=== PATIENT | male | born 1930 | race Caucasian/White ===

== ENCOUNTER 2017-03-08 10:15 | Day surgery (SDC) | payer MEDICARE, BC ==
[~2017-03-08] VITALS: Ht 172.7 cm; Wt 91.3 kg
[2017-03-08] VITALS (11 sets, daily range): BP systolic 118–180; BP diastolic 65–98; PULSE 63–92; TEMP 97.4–97.9
[~2017-03-08 10:15] MED LIST: AMLODIPINE5 MG PO; ASPIR-LOW81 MG PO; ASPIRIN E.C. 8181 MG PO; AZOPT; AZOPT 10 ML10 ML OD; AZOPT 10 ML10 ML OU; BETIMOL 0.5% OPH5 ML OP; BETIMOL 0.5% OPH5 ML OU; CARDURA 1MG1 MG PO; COUMADIN4 MG PO; COUMADIN5 MG PO; COZAAR50 MG PO; DOXAZOCIN PO; FLOMAX 0.40.4 MG/CAP PO; FORTAMET500 MG PO; GLUCOPHAGE500 MG/TAB PO; GLYBURIDE MICRO1 TA1 PO; GLYBURIDE/METFORMIN PO; HCTZ12.5TAB PO; IRON TABLETS325 MG PO; LEVEMIR100 U/ML SC; LIPITOR20 MG PO; LISINOPRIL20 MG PO; LISINOPRIL40 MG PO; METFORMIN500 MG PO; MULTIPLE VITAMI1 TAB PO; NORVASC 10MG10 MG PO; NORVASC5 MG PO; PRILOSEC; PRILOSEC20 MG PO; SAW PALMETTO500 MG PO; TOPROL XL100 MG PO; TRAVATAN; TRAVATAN 2.5 M2.5 M1 OS; TRAVATAN Z 2.52.5 ML OU; WARFARIN SODIUM6 MG PO; ZOCOR 80MG80 MG PO; [UNRECOGNIZED DRUG - OTHER]
[2017-03-08 10:53] LABS: HEMOGLOBIN 12.1 g/dl (13.5-18.0); MEAN CELL VOLUME 87 fl (80.0-100.0); MEAN CORPUSCULAR HEMOGLOBIN 29 pg (27.0-31.0); MEAN CORPUSCULAR HGB CONC 34 g/dl (33.0-37.0); MEAN PLATELET VOLUME 10.3 fl (7.4-10.4); PLATELET COUNT 232 K/mm3 (130-400); RED BLOOD COUNT 4.12 M/mm3 (4.20-5.60); REDCELL DISTRIBUTION WIDTH-CV 13.5 % (11.5-14.5); WHITE BLOOD COUNT 6.2 K/mm3 (4.8-10.8)
[2017-03-08 11:02] LABS: INR 1.1 (0.8-3.0); PROTHROMBIN TIME 11.9 SECONDS (9.7-12.8)
[2017-03-08 11:28] LABS: CREATININE, serum 1.02 mg/dL (0.66-1.25); POTASSIUM 4.6 mmol/L (3.4-5.0)
[2017-03-09 04:46] VITALS: BP 177/89; PULSE 85; TEMP 97.5
[2017-03-09 09:14] VITALS: BP 160/65; PULSE 80; TEMP 97.9
[2017-03-09] MEDS ORDERED: CLEOCIN HCL300 MG PO (11:31)
== END 2017-03-09 12:40 | disposition home or self-care (01) ==
LOC: JCC 10:15 → COL.CAR 10:15 → MEDICAL 17:00 → COL.CAR 17:00 → MEDICAL 03-09 12:40
PROVIDERS: Internal Medicine Interventional Cardiology
DX: I49.5 Sick sinus syndrome (principal); I25.10 Atherosclerotic heart disease of native coronary artery without angina pectoris; Z95.1 Presence of aortocoronary bypass graft; Z87.891 Personal history of nicotine dependence; I73.9 Peripheral vascular disease, unspecified; I48.91 Unspecified atrial fibrillation; Z79.01 Long term (current) use of anticoagulants; E78.5 Hyperlipidemia, unspecified; I71.4 Abdominal aortic aneurysm, without rupture; I87.2 Venous insufficiency (chronic) (peripheral)
CPT/HCPCS: C1785; C1894; C1898; J0690; J2250; J3010; J7030

== ENCOUNTER 2018-06-10 11:48 | Day surgery (SDC) | payer MEDICARE, BC ==
[~2018-06-10] VITALS: Ht 170.2 cm; Wt 91.9 kg
[2018-06-10] VITALS (10 sets, daily range): BP systolic 137–170; BP diastolic 61–88; PULSE 64–105; TEMP 97.5–98.2
[~2018-06-10 11:48] MED LIST changes: +CLEOCIN HCL300 MG PO; +COZAAR 50MG50 MG/TAB PO; -COZAAR50 MG PO; +PRILOSEC 20MG20 MG PO; -PRILOSEC20 MG PO
[2018-06-10] MEDS ORDERED: GLUCOVANCE 2.51 TAB PO (12:42)
[2018-06-10] MEDS ORDERED: LIPITOR 80MG80 MG PO (12:44)
[2018-06-10] MEDS ORDERED: TOPROL XL 25MG25 MG PO (12:47)
[2018-06-10] MEDS ORDERED: TRESIBA FL100 UNIT/1 SQ (12:48)
[2018-06-10] MEDS ORDERED: RESTASIS MULTI5.5 ML OP (12:49)
[2018-06-10] MEDS ORDERED: TYLENOL 325MG325 MG PO (12:50)
[2018-06-11 00:55] VITALS: BP 139/70; PULSE 101; TEMP 97.8
[2018-06-11 04:00] VITALS: BP 167/71; PULSE 95; TEMP 97.4
[2018-06-11 09:00] VITALS: BP 152/77; PULSE 82; TEMP 97.7
[2018-06-11 13:00] VITALS: BP 143/71; PULSE 81; TEMP 97
== END 2018-06-11 15:04 | disposition home or self-care (01) ==
LOC: SDCO 11:48 → SURG 15:30 → SDCO 06-11 15:04
DX: C67.2 Malignant neoplasm of lateral wall of bladder (principal); N40.1 Benign prostatic hyperplasia with lower urinary tract symptoms; R35.1 Nocturia; R39.11 Hesitancy of micturition; R39.12 Poor urinary stream; I48.91 Unspecified atrial fibrillation; I25.10 Atherosclerotic heart disease of native coronary artery without angina pectoris; K21.9 Gastro-esophageal reflux disease without esophagitis; E78.5 Hyperlipidemia, unspecified; I10 Essential (primary) hypertension; E66.9 Obesity, unspecified; E11.40 Type 2 diabetes mellitus with diabetic neuropathy, unspecified; E11.39 Type 2 diabetes mellitus with other diabetic ophthalmic complication; H42 Glaucoma in diseases classified elsewhere; G47.33 Obstructive sleep apnea (adult) (pediatric); I27.20 Pulmonary hypertension, unspecified; Z90.49 Acquired absence of other specified parts of digestive tract; Z95.1 Presence of aortocoronary bypass graft; Z95.0 Presence of cardiac pacemaker; Z79.82 Long term (current) use of aspirin; Z79.84 Long term (current) use of oral hypoglycemic drugs; Z88.0 Allergy status to penicillin; Z87.891 Personal history of nicotine dependence; Z85.46 Personal history of malignant neoplasm of prostate; Z92.3 Personal history of irradiation
CPT/HCPCS: OP; J0690; J1100; J2704; J3010; J7030

== ENCOUNTER 2019-10-13 13:35 | Day surgery (SDC) | payer MEDICARE, BC ==
[2019-10-13] VITALS (9 sets, daily range): BP systolic 112–155; BP diastolic 40–76; PULSE 61–82; TEMP 97.4–97.9
[~2019-10-13] VITALS: Ht 172.7 cm; Wt 91.2 kg
[~2019-10-13 13:35] MED LIST changes: -COZAAR 50MG50 MG/TAB PO; +COZAAR100 MG PO; +GLUCOVANCE 2.51 TAB PO; +LIPITOR 80MG80 MG PO; +RESTASIS MULTI5.5 ML OU; +TOPROL XL 50MG50 MG PO; +TRESIBA FL100 UNIT/1 SQ; +TYLENOL 325MG325 MG PO
[2019-10-13] MEDS ORDERED: HCTZ 25MG TAB25 MG PO (15:45)
[2019-10-13] MEDS ORDERED: XALATAN EYE DROPS OU (15:49)
[2019-10-13] MEDS ORDERED: TRUSOPT OCUMETE10 ML OD (15:51)
--- NOTE | 2019-10-13 16:55 | NUR ---
Left wrist IV site has infiltration noted. Small half-dollar sized edema noted at insertion site. Site discontinued with pressure dressing applied. New 20 guage Rt wrist started by Katelyn MCKEON. IV fluids infusing without difficulties. Pt taken to surgery at this time by Jordan MCKEON.
--- NOTE | 2019-10-13 20:15 | NUR ---
Pt. laying in bed at this time. Pt. is A&OX3, assessment complete. IV to rt. wrist patent, IV fluids infusing per orders. Luke catheter to DD, urine is collins red, no clots noted. Pt. denies pain or other needs, call light within reach.
[2019-10-14 00:43] VITALS: BP 95/74; PULSE 69; TEMP 97.4
[2019-10-14 04:25] VITALS: BP 145/60; PULSE 76; TEMP 97.5
[2019-10-14 07:10] VITALS: BP 161/82; PULSE 92; TEMP 97.1
--- NOTE | 2019-10-14 10:24 | NUR ---
Pt seen earlier this am and mitomycin administration process was reviewed with him and printed information was also provided. He reports that he always has a feeling of pressure in his bladder so is very concerned about discomfort of this nature. We reviewed chemotherapy precautions here and again at home for 24 hours. He did get up to the bathroom just prior to clamping his catheter just for peace of mind. Luke catheter was then drained of 350ml of sl reddish urine without clots. Using chemotherapy precautions and PPE, mitomycin was instilled into bladder without difficulty and without further discomfort to pt. He was given my contact information and I will check on him frequently to help aleviate his fears. Mitomycin was instilled at 1010. Reported to his nurse Juan Alberto Mitchell RN. Mitomycin was also verified with Miranda Garcia RN prior to administration by comparing printed label and printed orders. Chemotherapy precaution signage was posted outside of his door.
[2019-10-14 11:37] VITALS: BP 176/69; PULSE 91; TEMP 98.2
--- NOTE | 2019-10-14 14:26 | NUR ---
Pt called this nurse to his room at 1100 to report that his catheter was leaking and he had a lot of pressure which he could not stand. I responded and found him with a scant amount of leakage on his scrotum and chux. this was appropriately cleaned up, gown was changed and bagged. I released the clamp on his milligan catheter which did give him some relief almost immediately. he was also given medication for bladder spasms by his primary nurse. At 1300 I removed his catheter without difficulty after removing 10ml of water. Pericare was done following chemotherapy precautions. I reported this to Miranda Mitchell RN and she will now follow through discharge including the 6 bottle routine. 300ml of slightly bloody bluish/purple urine was present in the drainage bag and disposed of in chemotherapy container.
[2019-10-14] MEDS ORDERED: PYRIDIUM 100MG100 MG PO (14:35)
--- NOTE | 2019-10-14 15:20 | NUR ---
Patient is discharging home. Discharge instructions discussed with patient. No questions verbalized. INT discontinued. Explained when follow up appointments are. Explained has a prescription to take to the pharmacy. Copies of discharge instructions sent with patient. All belongings packed up and sent with him. Patient has been voiding without issues since milligan catheter discontinued. Patient walked out via wheel chair by Adolph GORDON.
== END 2019-10-14 15:22 | disposition home or self-care (01) ==
LOC: SDCO 13:35 → SURG 18:40 → SDCO 10-14 15:22
DX: C67.2 Malignant neoplasm of lateral wall of bladder (principal); Z92.3 Personal history of irradiation; I48.91 Unspecified atrial fibrillation; N40.0 Benign prostatic hyperplasia without lower urinary tract symptoms; I25.10 Atherosclerotic heart disease of native coronary artery without angina pectoris; K21.9 Gastro-esophageal reflux disease without esophagitis; E78.5 Hyperlipidemia, unspecified; I10 Essential (primary) hypertension; E11.42 Type 2 diabetes mellitus with diabetic polyneuropathy; E66.9 Obesity, unspecified; G47.33 Obstructive sleep apnea (adult) (pediatric); Z85.46 Personal history of malignant neoplasm of prostate; Z90.49 Acquired absence of other specified parts of digestive tract; Z95.1 Presence of aortocoronary bypass graft; Z95.0 Presence of cardiac pacemaker; Z90.79 Acquired absence of other genital organ(s); Z79.84 Long term (current) use of oral hypoglycemic drugs; Z88.1 Allergy status to other antibiotic agents; Z88.0 Allergy status to penicillin; Z87.891 Personal history of nicotine dependence; Z83.3 Family history of diabetes mellitus; Z82.49 Family history of ischemic heart disease and other diseases of the circulatory system; Z85.828 Personal history of other malignant neoplasm of skin
CPT/HCPCS: OP; C1769; J0360; J0690; J2270; J2405; J2704; J3010; J3480; J7030; J9280; Q9967

== ENCOUNTER 2019-11-10 14:11 | Day surgery (SDC) | payer MEDICARE, BC ==
[2019-11-10] VITALS (14 sets, daily range): BP systolic 111–155; BP diastolic 53–66; PULSE 60–81; TEMP 97.8
[~2019-11-10] VITALS: Ht 170.2 cm; Wt 89.3 kg
[~2019-11-10 14:11] MED LIST changes: +HCTZ 25MG TAB25 MG PO; +PYRIDIUM 100MG100 MG PO; +TRUSOPT OCUMETE10 ML OD; +XALATAN EYE DROPS OU
[2019-11-10] MEDS ORDERED: TRESIBA FL100 UNIT/1 SQ (14:55)
--- NOTE | 2019-11-10 17:30 | NUR ---
Patient up from OR. Alert and oriented x3. Family at bedside. Post op fluids infusing per orders. Luke to dependent drainge with clear peach urine present. Post op VSS. Patient and family oriented to room. Denies further needs at this time. Will continue to monitor.
[2019-11-11] VITALS: BP 126/71; PULSE 76; TEMP 98
--- NOTE | 2019-11-11 04:23 | NUR ---
Patient doing well tonight. alert and oriented. c/o pain at catheter insertion site, prn tylenol given. refused scheduled levemir, took other medications as prescribed. milligan to dependent drainage, draining clear light pink urine. no further needs at this time. will continue to monitor.
[2019-11-11 04:56] VITALS: BP 158/78; PULSE 79; TEMP 98.2
[2019-11-11 07:10] VITALS: BP 137/59; PULSE 69; TEMP 98.2
--- NOTE | 2019-11-11 08:00 | NUR ---
Patient resting at bedside eating breakfast at this time. Patient is alert and oriented, answers questions appropriately. Luke in place draining clear and brown/red urine. Patient denies pain or needs at this time, call light within reach.
--- NOTE | 2019-11-11 10:02 | NUR ---
Lawn Service Manager met with patient to discuss discharge planning. Patient lives in [place] with his Gail (ph#[phone]) and sees Dr. Kelley at [facility] for primary care. Patient obtains medications from [facility] with no difficulties. Patient has a cpap that he obtained from [facility]. Patient reports he has not been using it and needs to take it to [facility] for some assistance with cleaning it. Patient uses no other DME and reports independence with ADLS. Patient plans to return home upon discharge. No additional needs at this time.
[2019-11-11 11:37] VITALS: BP 143/69; PULSE 68; TEMP 98.3
--- NOTE | 2019-11-11 12:02 | NUR ---
Luke catheter removed per order. Patient tolerated procedure well. 10ml of water removed from balloon, catheter removed intact.
--- NOTE | 2019-11-11 14:30 | NUR ---
Discharge teaching completed. Discussed follow up appointment, discharge medications, and discharge instructions. INT removed, catheter intact, hemostasis achieved. Patient and family escorted to visitor entrance, where patient entered a private vehicle.
== END 2019-11-11 14:30 | disposition home or self-care (01) ==
LOC: SDCO 14:11 → SURG 17:40 → SDCO 11-11 14:30
DX: C67.9 Malignant neoplasm of bladder, unspecified (principal); Z92.3 Personal history of irradiation; I48.91 Unspecified atrial fibrillation; I25.10 Atherosclerotic heart disease of native coronary artery without angina pectoris; E11.40 Type 2 diabetes mellitus with diabetic neuropathy, unspecified; Z79.4 Long term (current) use of insulin; E78.5 Hyperlipidemia, unspecified; H40.9 Unspecified glaucoma; Z95.1 Presence of aortocoronary bypass graft; I11.9 Hypertensive heart disease without heart failure; K21.9 Gastro-esophageal reflux disease without esophagitis; Z95.0 Presence of cardiac pacemaker; Z87.891 Personal history of nicotine dependence; Z88.0 Allergy status to penicillin; Z82.49 Family history of ischemic heart disease and other diseases of the circulatory system; Z95.818 Presence of other cardiac implants and grafts; G47.33 Obstructive sleep apnea (adult) (pediatric); I08.3 Combined rheumatic disorders of mitral, aortic and tricuspid valves; I27.20 Pulmonary hypertension, unspecified; Z90.79 Acquired absence of other genital organ(s); Z79.899 Other long term (current) drug therapy; Z85.46 Personal history of malignant neoplasm of prostate; E66.9 Obesity, unspecified
CPT/HCPCS: OP; J0360; J0690; J1815; J2405; J2704; J3010; J7030